=== PATIENT | male | born 1935 | race African-American/Black ===

== ENCOUNTER 2017-02-21 12:59 | Inpatient (IN) | payer BC, OTHER ==
[2017-02-21] VITALS (27 sets, daily range): BP systolic 85–160; BP diastolic 38–67
[~2017-02-21] VITALS: Ht 172.7 cm; Wt 78.5 kg
[~2017-02-21 12:59] MED LIST: ETOMIDATE 2MG/ML 10ML VIAL IV ONE; SUCCINYLCHOLINE CHLORIDE 200MG/10ML VIAL IV ONE
[2017-02-21] MEDS ORDERED: MEMA1CAP PO (13:16)
[2017-02-21] MEDS ORDERED: SIMV20TA6 PO (13:16)
[2017-02-21] MEDS ORDERED: MIRT15TA6 PO (13:16)
[2017-02-21] MEDS ORDERED: ASPI-1035 PO (13:16)
[2017-02-21] MEDS ORDERED: ACET-2178 PO (13:16)
[2017-02-21] MEDS ORDERED: TAMS0.4C31 PO (13:16)
[2017-02-21] MEDS ORDERED: ALLO100T PO (13:16)
[2017-02-21] MEDS ORDERED: FLUT1DIS3 IH (13:16)
[2017-02-21] MEDS ORDERED: METHYLPREDNISOLONE SOD SUCC 125 MG/2 ML VIAL IV STA (13:37)
[2017-02-21] MEDS ORDERED: ALBUTEROL (0.083%) 2.5MG/3ML NEB HHN STA (13:37)
[2017-02-21] MEDS ORDERED: IPRATROPIUM BROMIDE (0.02%) 0.5MG/2.5ML NEB HHN STA (13:37)
[2017-02-21] MEDS ORDERED: PIPERACILLIN SODIUM/TAZOBACTAM 4.5 G in DEXT 5% WATER 100 ML IV ONE (13:45)
[2017-02-21] MEDS ORDERED: VANCOMYCIN 1 G PREMIX 200 ML IV ONE (13:45)
[2017-02-21] MEDS ORDERED: SODIUM CHLORIDE 0.9% 1000ML BAG (SEPSIS BOLUS) IV ONE (13:45)
[2017-02-21] MEDS ORDERED: IPRATROPIUM/ALBUTEROL 0.5-3(2.5)MG/3ML NEB ONE (13:53)
[2017-02-21 13:58] LABS: BG FRACTION INSPIRED OXYGEN 34; BG HCO3 ACT 10.7 mmol/L (22.0-26.0); BG PCO2 28.5 mmHg (35.0-45.0); BG PH 7.192 (7.350-7.450); BG PO2 84.4 mmHg (75.0-100.0); BG SAMPLE SITE RIGHT BRACHIAL; BG TOTAL HEMOGLOBIN < 4.5 g/dL (12.0-18.0); BG VENT MODE NASAL CANNULA
[2017-02-21 14:16] LABS: CLARITY URINE CLEAR (CLEAR); COLOR URINE YELLOW (YELLOW); GLUCOSE URINE NEGATIVE (NEGATIVE); KETONES URINE NEGATIVE (NEGATIVE); LEUKOCYTE ESTERASE URINE NEGATIVE (NEGATIVE); NITRITE URINE NEGATIVE (NEGATIVE); OCCULT BLOOD URINE NEGATIVE (NEGATIVE); PROTEIN URINE NEGATIVE (NEGATIVE); SPECIFIC GRAVITY URINE 1.017 (1.005-1.030)
[2017-02-21] MEDS ORDERED: ETOMIDATE 2MG/ML 10ML VIAL IV ONE (14:45)
[2017-02-21] MEDS ORDERED: SUCCINYLCHOLINE CHLORIDE 200MG/10ML VIAL IV ONE (14:45)
[2017-02-21] MEDS ORDERED: MIDAZOLAM HCL 50 MG in DEXTROSE 5% WATER 40 ML IV ONE ×5 (14:45→16:45)
[2017-02-21] MEDS ORDERED: MIDAZOLAM HCL 2 MG/2 ML VIAL IV ONE (14:45)
[2017-02-21 14:48] LABS: BASOPHILS % 0.5 % (0.0-2.0); EOSINOPHILS % 0.1 % (0.0-5.0); LYMPHOCYTES % 11.2 % (20.0-50.0); MEAN CORPUSCULAR HEMOGLOBIN 17.8 pg (28.0-32.0); MEAN CORPUSCULAR HGB CONC 25.9 g/dL (31.0-37.0); MEAN CORPUSCULAR VOLUME 68.6 fL (80.0-94.0); MEAN PLATELET VOLUME 8.2 fl (7.4-10.4); MONOCYTES % 4.9 % (2.0-8.0); NEUTROPHILS % 83.3 % (40.0-76.0); PLATELET 342 x1000/uL (130-400); RED BLOOD CELL COUNT 2.13 mill/uL (4.7-6.1); RED CELL DISTRIBUTION WIDTH 19.5 % (11.6-14.6); WHITE BLOOD COUNT 15.2 x1000/uL (4.5-11.0)
[2017-02-21 14:53] LABS: INR 1.7; PARTIAL THROMBOPLASTIN TIME 33.9 sec (24.0-34.0); PROTHROMBIN TIME 17.3 sec
[2017-02-21 15:00] LABS: ADD RBC MORPHOLOGY YES; DIFFERENTIAL COMMENT 1; HEMATOCRIT. 14.6 % (42.0-52.0); HEMOGLOBIN. 3.8 g/dL (14.0-18.0)
[2017-02-21 15:01] LABS: ALANINE AMINOTRANSFERASE 20 IU/L (13-61); ALBUMIN 2.8 g/dL (3.4-5.0); ANION GAP 24; CALCIUM 8.1 mg/dL (8.5-10.1); CARBON DIOXIDE 13 mEq/L (21-32); CHLORIDE 111 mEq/L (98-107); INDEX HEMOLYSI 2 (1-3); INDEX ICTERIC 1 (1-4); INDEX LIPEMIC 1 (1-3); NT PRO B-TYPE NATRIURETIC PEP 864 pg/mL (5-125); TROPONIN I < 0.02 ng/mL (0.00-0.04); UREA NITROGEN BLOOD 67 mg/dL (7-21); eGFR > 60 mL/min (>60)
[2017-02-21 15:04] LABS: LACTIC ACID 9.3 mmol/L (0.4-2.0)
[2017-02-21 15:24] LABS: PLATELET ESTIMATE NORMAL
[2017-02-21 15:25] LABS: HYPOCHROMASIA 3+
[2017-02-21 15:26] LABS: ANISOCYTOSIS 3+
[2017-02-21] MEDS ORDERED: SODIUM POLYSTYRENE SULFONATE 15 G/60 ML BOT NG ONE (15:30)
[2017-02-21] MEDS ORDERED: SODIUM CHLORIDE 10% FOR INH 15ML VIAL NEB INH SCH (15:30)
[2017-02-21] MEDS ORDERED: SODIUM BICARBONATE 8.4% 1 MEQ/ML 50ML SYR IV ONE (15:30)
[2017-02-21 16:49] LABS: BG FRACTION INSPIRED OXYGEN 100; BG HCO3 ACT 13.4 mmol/L (22.0-26.0); BG PCO2 27.4 mmHg (35.0-45.0); BG PH 7.308 (7.350-7.450); BG PO2 439.1 mmHg (75.0-100.0); BG SAMPLE SITE RIGHT BRACHIAL; BG TIDAL VOLUME(mL) 600 mL; BG TOTAL HEMOGLOBIN < 4.5 g/dL (12.0-18.0); BG VENT MODE VENT - A/C; BG VENT RATE 16 set
[2017-02-21] MEDS ORDERED: MIDAZOLAM HCL 50 MG in DEXTROSE 5% WATER 40 ML IV NR (17:30)
[2017-02-21] MEDS: IPRATROPIUM/ALBUTEROL 0.5-3(2.5)MG/3ML NEB HHN SCH (20:14)
[2017-02-21] MEDS: PANTOPRAZOLE SODIUM 40 MG/VIAL IV SCH (20:56)
[2017-02-21] MEDS ORDERED: ACETAMINOPHEN 650MG SUPP PR PRN (21:30)
[2017-02-21] MEDS ORDERED: VANCOMYCIN 750 MG PREMIX 150 ML IV SCH (23:00)
[2017-02-21] MEDS: PIPERACILLIN/TAZ 3.375G PREMIX 50 ML IV SCH (23:46)
[2017-02-22] VITALS (94 sets, daily range): BP systolic 89–154; BP diastolic 42–92
[2017-02-22] MEDS: IPRATROPIUM/ALBUTEROL 0.5-3(2.5)MG/3ML NEB HHN SCH ×6 (00:15→20:10)
[2017-02-22 01:15] LABS: MEAN CORPUSCULAR HEMOGLOBIN 20.9 pg (28.0-32.0); MEAN CORPUSCULAR HGB CONC 29.6 g/dL (31.0-37.0); MEAN CORPUSCULAR VOLUME 70.5 fL (80.0-94.0); MEAN PLATELET VOLUME 7.6 fl (7.4-10.4); PLATELET 271 x1000/uL (130-400); RED CELL DISTRIBUTION WIDTH 23.4 % (11.6-14.6); WHITE BLOOD COUNT 18.8 x1000/uL (4.5-11.0)
[2017-02-22] MEDS: MIDAZOLAM HCL 50 MG in DEXTROSE 5% WATER 40 ML IV PRN ×3 (01:37→18:56)
[2017-02-22 01:46] LABS: DIFFERENTIAL COMMENT 1; HEMOGLOBIN. 5.6 g/dL (14.0-18.0)
[2017-02-22] MEDS: PIPERACILLIN/TAZ 3.375G PREMIX 50 ML IV SCH ×3 (05:48→21:42)
[2017-02-22 07:09] LABS: BG BASE EXCESS -8.9 mmol/L (-2.0-2.0); BG CARBOXYHEMOGLOBIN 0.2 % (0.5-1.5); BG DEOXYHEMOGLOBIN 0.5 % (0.0-5.0); BG FRACTION INSPIRED OXYGEN 100; BG HCO3 ACT 16.1 mmol/L (22.0-26.0); BG METHEMOGLOBIN 0.8 % (0.0-1.5); BG OXYGEN SATURATION 99.5 % (92.0-98.5); BG OXYHEMOGLOBIN 98.5 % (94.0-97.0); BG PCO2 31.4 mmHg (35.0-45.0); BG PH 7.329 (7.350-7.450); BG PO2 368.5 mmHg (75.0-100.0); BG SAMPLE SITE RIGHT BRACHIAL; BG TIDAL VOLUME(mL) 600 mL; BG TOTAL HEMOGLOBIN 6.9 g/dL (12.0-18.0); BG VENT MODE VENT - A/C; BG VENT RATE 16 set
[2017-02-22 08:45] LABS: ANISOCYTOSIS 2+; HYPOCHROMASIA 2+; PLATELET ESTIMATE NORMAL
[2017-02-22] MEDS: PANTOPRAZOLE SODIUM 40 MG/VIAL IV SCH ×2 (09:27→20:39)
[2017-02-22 12:27] LABS: HEMATOCRIT. 25.9 % (42.0-52.0); HEMOGLOBIN. 7.9 g/dL (14.0-18.0); MEAN CORPUSCULAR HEMOGLOBIN 22.7 pg (28.0-32.0); MEAN CORPUSCULAR HGB CONC 30.6 g/dL (31.0-37.0); MEAN CORPUSCULAR VOLUME 74.1 fL (80.0-94.0); MEAN PLATELET VOLUME 7.8 fl (7.4-10.4); PLATELET 230 x1000/uL (130-400); RED BLOOD CELL COUNT 3.49 mill/uL (4.7-6.1); RED CELL DISTRIBUTION WIDTH 21.9 % (11.6-14.6)
[2017-02-22 12:32] LABS: DIFFERENTIAL COMMENT 1
[2017-02-22 12:53] LABS: ANION GAP 16; CALCIUM 7.8 mg/dL (8.5-10.1); CARBON DIOXIDE 19 mEq/L (21-32); CHLORIDE 116 mEq/L (98-107); INDEX HEMOLYSI 1 (1-3); INDEX ICTERIC 1 (1-4); INDEX LIPEMIC 1 (1-3); MAGNESIUM 2.8 mg/dL (1.8-2.4); UREA NITROGEN BLOOD 69 mg/dL (7-21); eGFR > 60 mL/min (>60)
[2017-02-22] MEDS ORDERED: SODIUM BICARBONATE 8.4% 1 MEQ/ML 50ML SYR IV SCH (13:15)
[2017-02-22 13:25] LABS: ANISOCYTOSIS 1+
[2017-02-22 13:26] LABS: HYPOCHROMASIA 1+; PLATELET ESTIMATE NORMAL
[2017-02-22] MEDS: FUROSEMIDE 20MG/2ML VIAL IVP SCH (17:43)
[2017-02-22] MEDS: VANCOMYCIN 1 G PREMIX 200 ML IV SCH (17:43)
[2017-02-22] MEDS: POTASSIUM CHLORIDE INJ 10 MEQ in DEXTROSE 5% WATER 1,000 ML IV SCH (19:15)
[2017-02-22 21:14] LABS: BASOPHILS % 0.2 % (0.0-2.0); HEMATOCRIT. 27.6 % (42.0-52.0); HEMOGLOBIN. 8.9 g/dL (14.0-18.0); LYMPHOCYTES % 9.1 % (20.0-50.0); MEAN CORPUSCULAR HEMOGLOBIN 24.3 pg (28.0-32.0); MEAN CORPUSCULAR HGB CONC 32.1 g/dL (31.0-37.0); MEAN CORPUSCULAR VOLUME 75.8 fL (80.0-94.0); MONOCYTES % 13.4 % (2.0-8.0); NEUTROPHILS % 77.3 % (40.0-76.0); PLATELET 223 x1000/uL (130-400); RED BLOOD CELL COUNT 3.64 mill/uL (4.7-6.1); RED CELL DISTRIBUTION WIDTH 23.2 % (11.6-14.6)
[2017-02-22 21:32] LABS: DIFFERENTIAL COMMENT 1
[2017-02-23] VITALS (60 sets, daily range): BP systolic 95–169; BP diastolic 44–90
[2017-02-23] MEDS: IPRATROPIUM/ALBUTEROL 0.5-3(2.5)MG/3ML NEB HHN SCH ×7 (00:16→23:54)
[2017-02-23] MEDS: MIDAZOLAM HCL 50 MG in DEXTROSE 5% WATER 40 ML IV PRN ×2 (04:05→15:07)
[2017-02-23] MEDS: PIPERACILLIN/TAZ 3.375G PREMIX 50 ML IV SCH ×2 (05:29→13:33)
[2017-02-23] MEDS: FUROSEMIDE 20MG/2ML VIAL IVP SCH ×2 (05:29→17:05)
[2017-02-23 05:41] LABS: HEMATOCRIT. 25.9 % (42.0-52.0); HEMOGLOBIN. 8.3 g/dL (14.0-18.0); MEAN CORPUSCULAR HEMOGLOBIN 24.1 pg (28.0-32.0); MEAN CORPUSCULAR HGB CONC 32.1 g/dL (31.0-37.0); MEAN CORPUSCULAR VOLUME 75.2 fL (80.0-94.0); MEAN PLATELET VOLUME 7.8 fl (7.4-10.4); PLATELET 221 x1000/uL (130-400); RED BLOOD CELL COUNT 3.44 mill/uL (4.7-6.1); RED CELL DISTRIBUTION WIDTH 23.5 % (11.6-14.6); WHITE BLOOD COUNT 12.4 x1000/uL (4.5-11.0)
[2017-02-23 05:53] LABS: DIFFERENTIAL COMMENT 1
[2017-02-23 05:58] LABS: ANION GAP 11; CALCIUM 7.6 mg/dL (8.5-10.1); CARBON DIOXIDE 25 mEq/L (21-32); CHLORIDE 115 mEq/L (98-107); INDEX HEMOLYSI 1 (1-3); INDEX ICTERIC 1 (1-4); INDEX LIPEMIC 1 (1-3); MAGNESIUM 2.8 mg/dL (1.8-2.4); PHOSPHORUS 3.7 mg/dL (2.5-4.9); UREA NITROGEN BLOOD 61 mg/dL (7-21); eGFR > 60 mL/min (>60)
[2017-02-23 07:10] LABS: INR 1.1; PROTHROMBIN TIME 11.7 sec
[2017-02-23 07:59] LABS: BG BASE EXCESS -3.2 mmol/L (-2.0-2.0); BG CARBOXYHEMOGLOBIN 0.2 % (0.5-1.5); BG FRACTION INSPIRED OXYGEN 60; BG HCO3 ACT 20.8 mmol/L (22.0-26.0); BG METHEMOGLOBIN 0.2 % (0.0-1.5); BG OXYHEMOGLOBIN 96.6 % (94.0-97.0); BG PH 7.417 (7.350-7.450); BG PO2 96.5 mmHg (75.0-100.0); BG SAMPLE SITE RIGHT BRACHIAL; BG TIDAL VOLUME(mL) 600 mL; BG TOTAL HEMOGLOBIN 8.8 g/dL (12.0-18.0); BG VENT MODE VENT - A/C; BG VENT RATE 16 set
[2017-02-23 08:13] LABS: ANISOCYTOSIS 2+; HYPOCHROMASIA 1+; PLATELET ESTIMATE NORMAL
[2017-02-23] MEDS: VANCOMYCIN 1 G PREMIX 200 ML IV SCH (08:25)
[2017-02-23] MEDS: POTASSIUM CHLORIDE INJ 10 MEQ in DEXTROSE 5% WATER 1,000 ML IV SCH (08:25)
[2017-02-23] MEDS: PANTOPRAZOLE SODIUM 40 MG/VIAL IV SCH ×2 (08:26→22:36)
[2017-02-23 12:07] LABS: HEMATOCRIT. 24.7 % (42.0-52.0); HEMOGLOBIN. 7.8 g/dL (14.0-18.0); MEAN CORPUSCULAR HEMOGLOBIN 23.8 pg (28.0-32.0); MEAN CORPUSCULAR HGB CONC 31.7 g/dL (31.0-37.0); MEAN PLATELET VOLUME 7.7 fl (7.4-10.4); PLATELET 216 x1000/uL (130-400); RED BLOOD CELL COUNT 3.29 mill/uL (4.7-6.1); RED CELL DISTRIBUTION WIDTH 23.7 % (11.6-14.6); WHITE BLOOD COUNT 13.7 x1000/uL (4.5-11.0)
[2017-02-23 12:08] LABS: DIFFERENTIAL COMMENT 1
[2017-02-23 13:31] LABS: ANISOCYTOSIS 1+; HYPOCHROMASIA 1+; PLATELET ESTIMATE NORMAL
[2017-02-23 13:33] LABS: INR 1.1; PROTHROMBIN TIME 11.8 sec
[2017-02-23] MEDS ORDERED: IOHEXOL-300 100 ML BOTTLE ONE (14:51)
[2017-02-23 18:01] LABS: HEMATOCRIT. 23.3 % (42.0-52.0); HEMOGLOBIN. 7.5 g/dL (14.0-18.0); MEAN CORPUSCULAR HGB CONC 32.3 g/dL (31.0-37.0); MEAN CORPUSCULAR VOLUME 74.2 fL (80.0-94.0); MEAN PLATELET VOLUME 7.5 fl (7.4-10.4); PLATELET 218 x1000/uL (130-400); RED BLOOD CELL COUNT 3.14 mill/uL (4.7-6.1); RED CELL DISTRIBUTION WIDTH 23.6 % (11.6-14.6); WHITE BLOOD COUNT 13.8 x1000/uL (4.5-11.0)
[2017-02-23 18:10] LABS: DIFFERENTIAL COMMENT 1
[2017-02-23 19:56] LABS: NUCLEATED RED BLOOD CELLS 1 /100 WBC; PLATELET ESTIMATE NORMAL
[2017-02-24] VITALS (32 sets, daily range): BP systolic 108–156; BP diastolic 49–71
[2017-02-24] MEDS: MIDAZOLAM HCL 50 MG in DEXTROSE 5% WATER 40 ML IV PRN (00:54)
[2017-02-24 02:58] LABS: HEMATOCRIT. 29.1 % (42.0-52.0); HEMOGLOBIN. 9.2 g/dL (14.0-18.0); MEAN CORPUSCULAR HEMOGLOBIN 24.7 pg (28.0-32.0); MEAN CORPUSCULAR HGB CONC 31.6 g/dL (31.0-37.0); MEAN CORPUSCULAR VOLUME 77.9 fL (80.0-94.0); MEAN PLATELET VOLUME 7.9 fl (7.4-10.4); PLATELET 196 x1000/uL (130-400); RED BLOOD CELL COUNT 3.73 mill/uL (4.7-6.1); RED CELL DISTRIBUTION WIDTH 21.5 % (11.6-14.6); WHITE BLOOD COUNT 13.3 x1000/uL (4.5-11.0)
[2017-02-24 03:00] LABS: DIFFERENTIAL COMMENT 1
[2017-02-24] MEDS: IPRATROPIUM/ALBUTEROL 0.5-3(2.5)MG/3ML NEB HHN SCH ×5 (04:08→19:46)
[2017-02-24] MEDS: POTASSIUM CHLORIDE INJ 10 MEQ in DEXTROSE 5% WATER 1,000 ML IV SCH ×3 (05:06→20:10)
[2017-02-24] MEDS: VANCOMYCIN 1 G PREMIX 200 ML IV SCH (05:06)
[2017-02-24] MEDS: FUROSEMIDE 20MG/2ML VIAL IVP SCH ×2 (05:06→16:20)
[2017-02-24 05:08] LABS: HEMATOCRIT. 27.9 % (42.0-52.0); MEAN CORPUSCULAR HEMOGLOBIN 24.9 pg (28.0-32.0); MEAN CORPUSCULAR HGB CONC 32.2 g/dL (31.0-37.0); MEAN CORPUSCULAR VOLUME 77.4 fL (80.0-94.0); MEAN PLATELET VOLUME 8.1 fl (7.4-10.4); PLATELET 186 x1000/uL (130-400); RED CELL DISTRIBUTION WIDTH 21.5 % (11.6-14.6); WHITE BLOOD COUNT 14.3 x1000/uL (4.5-11.0)
[2017-02-24 05:16] LABS: DIFFERENTIAL COMMENT 1
[2017-02-24 05:31] LABS: ANION GAP 11; CALCIUM 7.9 mg/dL (8.5-10.1); CARBON DIOXIDE 25 mEq/L (21-32); CHLORIDE 115 mEq/L (98-107); INDEX HEMOLYSI 1 (1-3); INDEX ICTERIC 1 (1-4); INDEX LIPEMIC 1 (1-3); VANCOMYCIN TROUGH 14.4 ug/mL (5.0-10.0); eGFR > 60 mL/min (>60)
[2017-02-24 05:50] LABS: UREA NITROGEN BLOOD 44 mg/dL (7-21)
[2017-02-24] MEDS: PANTOPRAZOLE SODIUM 40 MG/VIAL IV SCH ×2 (08:18→20:10)
[2017-02-24 09:12] LABS: ANISOCYTOSIS 2+
[2017-02-24 09:13] LABS: PLATELET ESTIMATE NORMAL
[2017-02-24 10:26] LABS: ANISOCYTOSIS 2+
[2017-02-24 10:27] LABS: PLATELET ESTIMATE NORMAL
[2017-02-24] MEDS ORDERED: LORAZEPAM 2MG/ML CPJ IV PRN (12:00)
[2017-02-24] MEDS ORDERED: SIMETHICONE 40 MG/0.6 ML 30ML ONE (12:23)
[2017-02-24] MEDS ORDERED: SODIUM CHLORIDE 0.9% 10ML VIAL ONE (12:23)
[2017-02-24 12:39] LABS: HEMATOCRIT. 28.4 % (42.0-52.0); HEMOGLOBIN. 9.1 g/dL (14.0-18.0); MEAN CORPUSCULAR HEMOGLOBIN 24.6 pg (28.0-32.0); MEAN CORPUSCULAR HGB CONC 32.1 g/dL (31.0-37.0); MEAN CORPUSCULAR VOLUME 76.8 fL (80.0-94.0); MEAN PLATELET VOLUME 7.5 fl (7.4-10.4); PLATELET 194 x1000/uL (130-400); RED CELL DISTRIBUTION WIDTH 21.6 % (11.6-14.6); WHITE BLOOD COUNT 14.9 x1000/uL (4.5-11.0)
[2017-02-24 12:42] LABS: DIFFERENTIAL COMMENT 1
[2017-02-24 13:57] LABS: ANISOCYTOSIS 3+; PLATELET ESTIMATE NORMAL
[2017-02-24] MEDS ORDERED: ACETAMINOPHEN 650MG/20.3ML UDC NG PRN (15:30)
[2017-02-24 16:07] LABS: CLARITY URINE CLEAR (CLEAR); COLOR URINE YELLOW (YELLOW); GLUCOSE URINE NEGATIVE (NEGATIVE); KETONES URINE NEGATIVE (NEGATIVE); LEUKOCYTE ESTERASE URINE NEGATIVE (NEGATIVE); NITRITE URINE NEGATIVE (NEGATIVE); OCCULT BLOOD URINE 2+ (NEGATIVE); PH URINE 5.5 (4.5-8.0); PROTEIN URINE 1+ (NEGATIVE); SPECIFIC GRAVITY URINE 1.023 (1.005-1.030)
[2017-02-24] MEDS ORDERED: FENTANYL CITRATE/PF 50MCG/ML 2ML VIAL ONE (16:19)
[2017-02-24] MEDS ORDERED: MIDAZOLAM HCL 5 MG/5 ML VIAL ONE (16:20)
[2017-02-24 16:46] LABS: WBC URINE 0-2 /hpf (0-2)
[2017-02-24 16:50] LABS: BACTERIA URINE 2+; SQUAMOUS EPITHELIAL CELL URINE RARE /lpf (RARE/1+)
[2017-02-24 19:02] LABS: BASOPHILS % 0.2 % (0.0-2.0); EOSINOPHILS % 0.4 % (0.0-5.0); HEMATOCRIT. 27.3 % (42.0-52.0); HEMOGLOBIN. 8.8 g/dL (14.0-18.0); LYMPHOCYTES % 4.3 % (20.0-50.0); MEAN CORPUSCULAR HEMOGLOBIN 24.8 pg (28.0-32.0); MEAN CORPUSCULAR HGB CONC 32.4 g/dL (31.0-37.0); MEAN CORPUSCULAR VOLUME 76.6 fL (80.0-94.0); MEAN PLATELET VOLUME 7.4 fl (7.4-10.4); MONOCYTES % 9.6 % (2.0-8.0); NEUTROPHILS % 85.5 % (40.0-76.0); PLATELET 185 x1000/uL (130-400); RED BLOOD CELL COUNT 3.56 mill/uL (4.7-6.1); RED CELL DISTRIBUTION WIDTH 22.2 % (11.6-14.6)
[2017-02-24 19:07] LABS: DIFFERENTIAL COMMENT 1
[2017-02-25] VITALS (16 sets, daily range): BP systolic 121–156; BP diastolic 54–73
[2017-02-25] MEDS: IPRATROPIUM/ALBUTEROL 0.5-3(2.5)MG/3ML NEB HHN SCH ×4 (00:02→11:58)
[2017-02-25] MEDS: FUROSEMIDE 20MG/2ML VIAL IVP SCH (05:28)
[2017-02-25 05:43] LABS: HEMATOCRIT. 28.2 % (42.0-52.0); HEMOGLOBIN. 8.8 g/dL (14.0-18.0); MEAN CORPUSCULAR HEMOGLOBIN 24.3 pg (28.0-32.0); MEAN CORPUSCULAR HGB CONC 31.3 g/dL (31.0-37.0); MEAN CORPUSCULAR VOLUME 77.5 fL (80.0-94.0); MEAN PLATELET VOLUME 7.9 fl (7.4-10.4); PLATELET 192 x1000/uL (130-400); RED BLOOD CELL COUNT 3.64 mill/uL (4.7-6.1); RED CELL DISTRIBUTION WIDTH 22.3 % (11.6-14.6)
[2017-02-25 05:51] LABS: DIFFERENTIAL COMMENT 1
[2017-02-25 06:35] LABS: CHLORIDE 113 mEq/L (98-107); INDEX HEMOLYSI 1 (1-3); INDEX ICTERIC 1 (1-4); INDEX LIPEMIC 1 (1-3)
[2017-02-25 06:54] LABS: ANION GAP 12; CALCIUM 8.7 mg/dL (8.5-10.1); CARBON DIOXIDE 24 mEq/L (21-32); UREA NITROGEN BLOOD 32 mg/dL (7-21); eGFR > 60 mL/min (>60)
[2017-02-25 07:23] LABS: ANISOCYTOSIS 3+; PLATELET ESTIMATE NORMAL
[2017-02-25 08:28] LABS: BG BASE EXCESS -3.6 mmol/L (-2.0-2.0); BG CARBOXYHEMOGLOBIN 0.3 % (0.5-1.5); BG DEOXYHEMOGLOBIN 2.8 % (0.0-5.0); BG FRACTION INSPIRED OXYGEN 60; BG HCO3 ACT 19.8 mmol/L (22.0-26.0); BG METHEMOGLOBIN 0.2 % (0.0-1.5); BG OXYGEN SATURATION 97.2 % (92.0-98.5); BG OXYHEMOGLOBIN 96.7 % (94.0-97.0); BG PCO2 29.8 mmHg (35.0-45.0); BG PH 7.441 (7.350-7.450); BG PO2 97.7 mmHg (75.0-100.0); BG SAMPLE SITE RIGHT BRACHIAL; BG TIDAL VOLUME(mL) 600 mL; BG TOTAL HEMOGLOBIN 8.9 g/dL (12.0-18.0); BG VENT MODE VENT - A/C; BG VENT RATE 16 set
[2017-02-25] MEDS: PANTOPRAZOLE SODIUM 40 MG/VIAL IV SCH (08:31)
[2017-02-25] MEDS: POTASSIUM CHLORIDE INJ 10 MEQ in DEXTROSE 5% WATER 1,000 ML IV SCH (11:33)
== END 2017-02-25 14:28 | disposition short-term general hospital (02) | DRG 252 ==
LOC: ER 13:56 → CVICU 17:47
PROVIDERS: ADMIT Internal Medicine Pulmonary Disease; ATTEND Internal Medicine Pulmonary Disease
PROC: 5A1945Z Respiratory Ventilation, 24-96 Consecutive Hours (ICD-10-PCS; principal; 2017-02-21)
PROC: 30233N1 Transfusion of Nonautologous Red Blood Cells into Peripheral Vein, Percutaneous Approach (ICD-10-PCS; 2017-02-21)
PROC: 0BH17EZ Insertion of Endotracheal Airway into Trachea, Via Natural or Artificial Opening (ICD-10-PCS; 2017-02-21)
PROC: 06H03DZ Insertion of Intraluminal Device into Inferior Vena Cava, Percutaneous Approach (ICD-10-PCS; 2017-02-23)
PROC: B5191ZA Fluoroscopy of Inferior Vena Cava using Low Osmolar Contrast, Guidance (ICD-10-PCS; 2017-02-23)
PROC: 0DB68ZX Excision of Stomach, Via Natural or Artificial Opening Endoscopic, Diagnostic (ICD-10-PCS; 2017-02-24)
DX: I82.412 Acute embolism and thrombosis of left femoral vein (principal); J96.00 Acute respiratory failure, unspecified whether with hypoxia or hypercapnia; K29.81 Duodenitis with bleeding; K29.61 Other gastritis with bleeding; R57.8 Other shock; I50.22 Chronic systolic (congestive) heart failure; I67.82 Cerebral ischemia; J44.1 Chronic obstructive pulmonary disease with (acute) exacerbation; J45.901 Unspecified asthma with (acute) exacerbation; J98.11 Atelectasis; E87.2 Acidosis; I45.2 Bifascicular block; I82.432 Acute embolism and thrombosis of left popliteal vein; M48.06 Spinal stenosis, lumbar region; M48.02 Spinal stenosis, cervical region; D50.9 Iron deficiency anemia, unspecified; I44.0 Atrioventricular block, first degree; K27.9 Peptic ulcer, site unspecified, unspecified as acute or chronic, without hemorrhage or perforation; X58.XXXA Exposure to other specified factors, initial encounter; T45.515A Adverse effect of anticoagulants, initial encounter; E87.5 Hyperkalemia; F03.90 Unspecified dementia, unspecified severity, without behavioral disturbance, psychotic disturbance, mood disturbance, and anxiety; I11.0 Hypertensive heart disease with heart failure; I73.9 Peripheral vascular disease, unspecified; K44.9 Diaphragmatic hernia without obstruction or gangrene; Z79.01 Long term (current) use of anticoagulants; Z87.891 Personal history of nicotine dependence; Z86.73 Personal history of transient ischemic attack (TIA), and cerebral infarction without residual deficits
CPT/HCPCS: 36415; 36600; 37191; 70450; 71010; 74000; 80048; 80053; 80202; 81001; 81003; 82270; 82375; 82805; 82962; 83605; 83735; 83880; 84100; 84484; 85025; 85610; 85730; 86850; 86900; 86920; 87040; 87070; 87077; 87086; 87186; 88305; 88312; 88313; 93005; 93306; 94002; 94003; 94640; 94664; 96365; 96375; 99285; A4216; A6261; C1769; C1880; C9113; J0330; J1940; J2250; J2543; J2930; J3010; J3370; J3480; J3490; J7030; J7040; J7042; J7050; J7060; J7070; J7131; J7611; J7620; P9016; Q9967; A4315